=== PATIENT | female | born 1970 | race Caucasian/White ===

== ENCOUNTER 2023-05-27 14:39 | Emergency (ER) | payer SELFPAY ==
[~2023-05-27] VITALS: Ht 170.2 cm; Wt 93.6 kg
[2023-05-27 14:51] VITALS: TEMP 98.7
[2023-05-27 16:35] VITALS: BP 124/87; PULSE 78
== END 2023-05-27 16:37 | disposition home or self-care (01) ==
LOC: COL.ER 14:39
DX: S50.11XA Contusion of right forearm, initial encounter (principal); W20.8XXA Other cause of strike by thrown, projected or falling object, initial encounter